=== PATIENT | female | born 1965 | race Native Hawaiian/Other Pacific Islander ===

== ENCOUNTER 2019-03-21 07:30 | Outpatient (CLI) | payer BC ==
[~2019-03-21 07:30] MED LIST: FLUC150T PO; LEVOTHROID75 MCG OR; LISI20TA24 PO
== END 2019-03-21 07:35 | disposition short-term general hospital (02) ==
LOC: AMB 07:30
DX: M25.511 Pain in right shoulder (principal); W17.2XXA Fall into hole, initial encounter; Y92.481 Parking lot as the place of occurrence of the external cause
CPT/HCPCS: A0425; A0429

== ENCOUNTER 2019-03-21 07:32 | Emergency (ER) | payer BC ==
[~2019-03-21] VITALS: Ht 154.9 cm; Wt 117.9 kg
[2019-03-21 07:37] VITALS: BP 161/90; TEMP 97.3
== END 2019-03-21 09:40 | disposition home or self-care (01) ==
LOC: ED 07:32
DX: S80.02XA Contusion of left knee, initial encounter (principal); S60.212A Contusion of left wrist, initial encounter; S90.02XA Contusion of left ankle, initial encounter; S42.294A Other nondisplaced fracture of upper end of right humerus, initial encounter for closed fracture; W17.2XXA Fall into hole, initial encounter; Y92.481 Parking lot as the place of occurrence of the external cause
CPT/HCPCS: 96372; 99284; J1885

== ENCOUNTER 2022-07-27 12:17 | Outpatient (CLI) | payer BC | END 2022-07-27 19:00 | disposition home or self-care (01) | LOC: US 12:17 | PROVIDERS: ATTEND Internal Medicine | DX: R60.0 Localized edema (principal); R52 Pain, unspecified ==

== ENCOUNTER 2022-09-15 08:55 | Outpatient (CLI) | payer BC | END 2022-09-15 19:14 | disposition home or self-care (01) | LOC: MAMMO 08:55 | PROVIDERS: ATTEND Internal Medicine Gastroenterology | DX: Z12.31 Encounter for screening mammogram for malignant neoplasm of breast (principal) ==